=== PATIENT | male | born 1960 | race Caucasian/White ===

== ENCOUNTER 2024-12-01 16:15 | Emergency (ER) | payer MEDICARE ==
[~2024-12-01] VITALS: Wt 104.8 kg
[2024-12-01 16:48] LABS: BASO % 0.5 % (0.0-1.0); EOS # 0.3 10*3/uL (0.0-0.4); EOS % 5.4 % (1.0-4.0); MEAN CELL VOLUME 87.6 fl (80.0-94.0); MEAN CORPUSCULAR HGB 27.8 pg (27.0-31.0); MEAN CORPUSCULAR HGB CONC 31.7 g/dl (33.0-37.0); MEAN PLATELET VOLUME 8.3 fl (9.6-12.3); MONO # 0.7 10*3/uL (0.1-1.0); MONO % 10.9 % (3.0-9.0); NEUT # 2.5 10*3/uL (2.3-7.9); NEUT % 42.1 % (47.0-73.0); PLATELET COUNT AUTOMATED 213 10*3/uL (130-400); RED BLOOD COUNT 4.68 10*6/uL (4.50-5.90); RED CELL DISTRI WIDTH 13.7 % (0-14.5)
[2024-12-01 17:20] LABS: BUN 14 mg/dl (9-23); CHLORIDE 100 mmol/L (98-107)
[2024-12-01] MEDS ORDERED: Sulfamethoxazole/Trimethopri 1 TAB TAB PO ONE (18:50)
[2024-12-01] MEDS ORDERED: Ceftriaxone Sodium 1 GM/10 ML SYR IV ONE (18:50)
[2024-12-01] MEDS ORDERED: SEPTDS PO (18:56)
[2024-12-01] MEDS ORDERED: CEPHALEXIN500 M1 PO (18:56)
[2024-12-01] MEDS ORDERED: CEPHALEXIN 500 MG CAP PO ONE (19:05)
== END 2024-12-01 20:11 ==
LOC: ED 16:15
PROVIDERS: Nurse Practitioner Family
DX: L03.115 Cellulitis of right lower limb (principal); M25.552 Pain in left hip